=== PATIENT | male | born 1980 | race Caucasian/White ===

== ENCOUNTER 2023-03-09 16:32 | Emergency (ER) | payer OTHER ==
[~2023-03-09] VITALS: Ht 190.5 cm; Wt 90.9 kg
[2023-03-09] MEDS ORDERED: NS 1,000 ML IV ONE (17:20)
[2023-03-09 17:54] LABS: BASO # 0.1 10^3/uL (0.0-0.2); BASO % 1.1 % (0.0-1.0); EOS # 0.2 10^3/uL (0.0-0.5); EOS % 2.4 % (0.0-3.0); HEMATOCRIT 43.7 % (42.0-52.0); LYMPH # 3.2 10^3/uL (1.5-5.0); LYMPH % 38.2 % (24.0-44.0); MEAN CORPUSCULAR HGB CONC 34.3 g/dl (32.0-36.5); MEAN CORPUSCULAR VOLUME 87.4 fl (80.0-96.0); MONO # 0.6 10^3/uL (0.0-0.8); MONO % 6.9 % (2.0-8.0); NEUTROPHILS # 4.3 10^3/uL (1.5-8.5); PLATELET COUNT, AUTOMATED 266 10^3/uL (150-450); WHITE BLOOD COUNT 8.5 10^3/uL (4.0-10.0)
[2023-03-09 17:55] LABS: CK-MB VALUE MASS < 1.0 NG/ML (<3.6)
[2023-03-09 17:59] LABS: ALBUMIN 4.2 G/DL (3.2-5.2); ALKALINE PHOSPHATASE 63 U/L (46-116); ALT/SGPT 31 U/L (7.0-40); AST/SGOT 23 U/L (<34); BILIRUBIN,DIRECT 0.2 MG/DL (<0.4); BILIRUBIN,TOTAL 1.1 MG/DL (0.3-1.2); BLOOD UREA NITROGEN 17 MG/DL (9-23); CALCIUM LEVEL 8.9 MG/DL (8.5-10.1); CARBON DIOXIDE LEVEL 23 MMOL/L (20-31); CHLORIDE LEVEL 106 MMOL/L (98-107); CREATININE FOR GFR 0.84 MG/DL (0.70-1.30); GLOMERULAR FILTRATION RATE > 60.0 (>60); GLUCOSE, FASTING 148 MG/DL (60-100); MAGNESIUM LEVEL 1.6 MG/DL (1.8-2.4); POTASSIUM SERUM 3.3 MMOL/L (3.5-5.1); SODIUM LEVEL 140 MMOL/L (136-145); THYROID STIMULATING HORMONE 2.193 uIU/ML (0.55-4.78); TOTAL PROTEIN 6.7 G/DL (5.7-8.2)
[2023-03-09 18:01] LABS: FREE T4 1.12 NG/DL (0.89-1.76)
[2023-03-09 18:12] LABS: HEPATITIS B SURFACE ANTIGEN NEGATIVE (NEGATIVE)
[2023-03-09 18:13] LABS: CPK CREATINE PHOSPHOKINASE 118 U/L (46-171); MB/CK RELATIVE INDEX 0.84 (< OR =4)
[2023-03-09 18:24] LABS: HIV 1&2 SCREEN NEGATIVE (NEGATIVE)
[2023-03-09 18:33] LABS: HEPATITIS B CORE ANTIBODY IGM NEGATIVE (NEGATIVE); HEPATITIS C VIRUS ABY INDEX 0.08 INDEX (<0.8)
[2023-03-09] MEDS ORDERED: MAGNESIUM OXIDE 400MG TAB (MAG-OX) PO ONE (19:10)
[2023-03-09] MEDS ORDERED: POTASSIUM CHLORIDE 10MEQ SR TABLET PO ONE (19:10)
[2023-03-09] MEDS ORDERED: NEUTRA-PHOS 1.5 GM PACKET PO ONE (19:10)
[2023-03-09] MEDS ORDERED: HEPATITIS B IMMUNE GLOBULIN 5ML INJ IM.IMMUN ONE (19:40)
[2023-03-09] MEDS ORDERED: HEPATITIS B VACCINE 20MCG/ML 1ML SYRINGE (ADULT DOSE) IM.IMMUN ONE (19:40)
[2023-03-09 20:00] LABS: AMPHETAMINES LEVEL URINE NEGATIVE (NEGATIVE); BARBITURATES URINE NEGATIVE (NEGATIVE); BENZODIAZEPINES URINE NEGATIVE (NEGATIVE); COCAINE METABOLITE URINE NEGATIVE (NEGATIVE); METHADONE URINE NEGATIVE (NEGATIVE); OPIATES URINE NEGATIVE (NEGATIVE); PHENCYCLIDINE URINE NEGATIVE (NEGATIVE)
[2023-03-09 20:03] LABS: CANNABINOIDS URINE POSITIVE (NEGATIVE)
[2023-03-09 21:27] VITALS: BP 133/88; TEMP 97.1; O2SAT 100
== END 2023-03-09 21:28 | disposition home or self-care (01) ==
LOC: M ED 16:32 → EDBD 16:32 → M ED 21:28
DX: R55 Syncope and collapse (principal); Z77.21 Contact with and (suspected) exposure to potentially hazardous body fluids

== ENCOUNTER → 2024-05-05 | Outpatient (REF) | payer OTHER ==
[2024-05-05 14:05] LABS: BASO # 0.1 10^3/uL (0.0-0.2); BASO % 0.7 % (0.0-1.0); EOS # 0.3 10^3/uL (0.0-0.5); HEMATOCRIT 43.5 % (42.0-52.0); HEMOGLOBIN 14.9 g/dl (13.5-17.5); LYMPH # 1.8 10^3/uL (1.5-5.0); LYMPH % 21.9 % (24.0-44.0); MEAN CORPUSCULAR HEMOGLOBIN 30.8 pg (27.0-33.0); MEAN CORPUSCULAR HGB CONC 34.3 g/dl (32.0-36.5); MEAN CORPUSCULAR VOLUME 89.9 fl (80.0-96.0); MONO # 0.6 10^3/uL (0.0-0.8); MONO % 7.5 % (2.0-8.0); NEUTROPHILS # 5.6 10^3/uL (1.5-8.5); NEUTROPHILS % 66.5 % (36.0-66.0); PLATELET COUNT, AUTOMATED 253 10^3/uL (150-450); RED BLOOD COUNT 4.84 10^6/uL (4.30-6.10); WHITE BLOOD COUNT 8.4 10^3/uL (4.0-10.0)
[2024-05-05 14:08] LABS: ALBUMIN 4.1 G/DL (3.2-5.2); ALKALINE PHOSPHATASE 71 U/L (46-116); ALT/SGPT 34 U/L (7.0-40); AST/SGOT 29 U/L (<34); BILIRUBIN,TOTAL 0.7 MG/DL (0.3-1.2); BLOOD UREA NITROGEN 17 MG/DL (9-23); CALCIUM LEVEL 9.4 MG/DL (8.5-10.1); CARBON DIOXIDE LEVEL 29 MMOL/L (20-31); CHLORIDE LEVEL 106 MMOL/L (98-107); CHOLESTEROL LEVEL 160 MG/DL (<200); CHOLESTEROL RISK RATIO 3.91 (<5); CREATININE FOR GFR 0.96 MG/DL (0.70-1.30); GLOMERULAR FILTRATION RATE > 60.0 (>60); GLUCOSE, FASTING 109 MG/DL (60-100); HDL CHOLESTEROL 40.9 MG/DL (>40); LDL CHOLESTEROL 102.9 MG/DL (<100); MAGNESIUM LEVEL 1.8 MG/DL (1.8-2.4); NON-HDL-C 119.1 MG/DL; POTASSIUM SERUM 4.6 MMOL/L (3.5-5.1); SODIUM LEVEL 137 MMOL/L (136-145); THYROID STIMULATING HORMONE 1.116 uIU/ML (0.55-4.78); TOTAL 25(OH) VITAMIN D 30.4 NG/ML (20.0-100.0); TOTAL PROTEIN 6.8 G/DL (5.7-8.2); TRIGLYCERIDES LEVEL 81 MG/DL (<150)
[2024-05-05 14:10] LABS: VITAMIN B12 LEVEL 489 PG/ML (211-911)
[2024-05-05 14:15] LABS: HEMOGLOBIN A1c 5.1 % (4.0-6.0)
[2024-05-05 16:11] LABS: FOLATE 9.5 NG/ML (>5.4)
== END ==
LOC: M LAB REF 12:54
PROVIDERS: ATTEND Nurse Practitioner Family
DX: R51.9 Headache, unspecified (principal); E66.3 Overweight; E55.9 Vitamin D deficiency, unspecified; Z11.9 Encounter for screening for infectious and parasitic diseases, unspecified; R53.83 Other fatigue